=== PATIENT | male | born 1950 | race Caucasian/White ===

== ENCOUNTER 2020-03-09 11:59 | Outpatient (CLI) | payer OTHER ==
--- NOTE | 2020-03-09 14:00 | RAD ---
TWO VIEWS OF THE LUMBAR SPINE: DATE: 03/09/2020. COMPARISON: None. HISTORY: Low back pain. FINDINGS: There is a mild degree of levoscoliosis of the lumbar spine. There is a calcification lateral to the left transverse process of L3 measuring 1.1 cm. This may be associated with the left kidney. There is partial sacralization of L5 on the left. Lateral imaging demonstrates disk space narrowing and degenerative end plate change at L3-4 and L5-S1. Multilevel lower lumbar spine facet hypertrophy noted. No acute fracture. No anterolisthesis or retrolisthesis. IMPRESSION: Degenerative disk disease as detailed above. No acute finding or dislocation. 1.1 cm calcification within the mid left abdomen. POS: [facility]
== END 2020-03-09 12:00 | disposition home or self-care (01) ==
LOC: BICRAD 11:59
PROVIDERS: ATTEND Specialist
DX: M54.5 Low back pain (principal); M51.36 Other intervertebral disc degeneration, lumbar region; M51.37 Other intervertebral disc degeneration, lumbosacral region; R93.5 Abnormal findings on diagnostic imaging of other abdominal regions, including retroperitoneum
CPT/HCPCS: 72100

== ENCOUNTER 2020-03-25 10:39 | Outpatient (CLI) | payer OTHER ==
--- NOTE | 2020-03-25 12:56 | MRI ---
MRI LUMBAR SPINE WITHOUT CONTRAST: HISTORY: M54.17 lumbar radicular pain. COMPARISON: Reference is made to a radiograph of 03/09/2020. FINDINGS: The conus medullaris terminates near the inferior end plate of L1. No marrow infiltrative process. Modic type II end plate changes at L5-S1. One small cyst in the left kidney. The aortic contour is nonaneurysmal. No retroperitoneal periaort ic adenopathy. No marrow infiltrative process. Levels are as follows: L1-2: Minimal disk space height with desiccation. Small subforaminal and lateral recess disk-osteop hyte complexes. Mild facet arthrosis. Mild bilateral neural foraminal narrowing. L2-3: Mild disk desiccation. There is asymmetric disk-osteophyte complex in the left lateral recess and subforaminal zones and pericentral zone. This is superimposed on a disk bulge. Mild to moderat e left and mild right neural foraminal narrowing. L3-4: Moderate degenerative disk space height loss. Circumferential disk-osteophyte complex greates t in the lateral recesses and subforaminal zones. Moderate hypertrophic facet arthropathy. There is moderate to severe right and left neural foraminal narrowing with abutment of both exiting and trave rsing nerve roots. There is also ligamentum flavum hypertrophy. There is some crowding of the nerve roots of the spinal canal measuring 4-5 mm. L4-5: There is moderate degenerative disk space height loss of a superimposed central disk herniatio n. The herniation causes crowding of the nerve roots with spinal canal narrowing to approximately 4- 5 mm. There is moderate bilateral neural foraminal narrowing. Moderate facet arthrosis. L5-S1: Moderate degenerative disk space height loss with disk-osteophyte complex. There is mild rig ht and moderate to severe left exiting left and traversing left nerve root abutment. There is also a butment of the right traversing nerve root. IMPRESSION: Multilevel spondylosis as described with high-grade neural foraminal and spinal canal narrowing great est at L3-4 and L4-5. At L4-5, there is a disk herniation superimposed upon a disk bulge. Given the crowded nerve roots, neurosurgical consultation is advised. POS: HOME
== END 2020-03-25 10:40 | disposition home or self-care (01) ==
LOC: BICMRI 10:39
PROVIDERS: ATTEND Specialist
DX: M47.26 Other spondylosis with radiculopathy, lumbar region (principal); M51.16 Intervertebral disc disorders with radiculopathy, lumbar region; M48.061 Spinal stenosis, lumbar region without neurogenic claudication
CPT/HCPCS: 72148